=== PATIENT | female | born 1995 | race Caucasian/White ===

== ENCOUNTER → 2020-08-29 13:53 | Outpatient (CLI) | payer OTHER, SELFPAY ==
--- NOTE | 2020-08-29 15:02 | NEURO ---
NCS and/or EMG Patient Report DATE OF SERVICE: 08/29/20 Geovanna Phillips is a 25-year-old female presents for electrodiagnostic testing of the upper limbs. She reports numbness, tingling and pain in the hands, worse on the right side. Electrodiagnostic findings: Median motor nerve demonstrates normal distal latency, amplitude and conduction velocity on the right side. Left median motor nerve demonstrates normal distal latency and amplitude with borderline reduced conduction velocity. Normal ulnar motor response bilaterally. Prolonged left median sensory latency at the wrist. Normal ulnar and radial sensory responses. On needle EMG, all muscles tested in the upper limb showed no evidence of denervation with normal motor unit action potentials. Electrodiagnostic impression: This is an abnormal study in the upper limbs. 1. Electrodiagnostic findings suggestive of left-sided median mononeuropathy, consistent with a mild left carpal tunnel syndrome. There is no electrodiagnostic evidence for a right-sided carpal tunnel syndrome. If there are any further questions, please do not hesitate to contact me.
== END ==
DX: G56.00 Carpal tunnel syndrome, unspecified upper limb (principal); G56.23 Lesion of ulnar nerve, bilateral upper limbs
CPT/HCPCS: 95886; 95912

== ENCOUNTER → 2024-02-12 | Outpatient (CLI) | payer OTHER, SELFPAY ==
--- NOTE | 2024-02-12 12:45 | MRI_ITS ---
STUDY: MRI BRAIN WITHOUT CONTRAST REASON FOR EXAM: Female, 28 years old. PAPILLEDEMA TECHNIQUE: Standardized multiplanar fat and water weighted pulse sequences were obtained. COMPARISON: None. FINDINGS: Normal size of the ventricles and extra-axial spaces for the patient''s age. Normal white matter tracts of the supratentorial brain. There is no evidence for recent intracranial ischemia or other cause of cytotoxic edema on diffusion weighted imaging (DWI). Normal T2* images of the brain without demonstrated susceptibility artifact. There is no demonstrated hemosiderin stain. Normal bilateral basal ganglia. Normal thalami. There is no extra-axial fluid accumulation. Normal flow voids within the major intracranial circulation suggesting patency by spin echo criteria. There is empty sella. Normal infundibular stalk, hypothalamus, and optic chiasm. Normal tectal plate and pineal gland. Normal midbrain, trinh and medulla. Normal cerebellum. Normal basal cisterns. Normal bilateral temporal bones. Normal bilateral internal auditory canals. No demonstrated orbital abnormality, within the constraints of a routine brain study. Normal visualized paranasal sinuses. Normal calvarium and skull base. Normal visualized soft tissue structures. Normal visualized upper cervical spine. MRI/Brain without Contrast IMPRESSION: Empty sella. No acute intracranial abnormality. Electronically Signed: Hernan Bernstein MD at 15:30 EDT ,
== END | disposition home or self-care (01) ==
LOC: MRI 12:42
PROVIDERS: PCP Family Medicine; Referring Provider Ophthalmology; Visit Provider Ophthalmology
DX: H47.10 Unspecified papilledema (principal)
CPT/HCPCS: 70551

== ENCOUNTER 2024-09-13 13:30 | Outpatient (RCR) | payer OTHER, SELFPAY ==
--- NOTE | 2024-08-24 13:32 | HP.PTEVAL ---
Patient's Visit Information Visit Information Visit Information: YADIRA KNOX is a 29 year old F referred to Physical Therapy by Dr. Marely Pickett MD with a diagnosis of CERVICALALGIA ,ACUTE LOW BACK PAIN WITHOUT SCIATICA. Date of Evaluation: 08/23/24 Physical Therapist: Junaid Chaney, PT, Cert MDT, OCS Visit Plan Frequency: 2x /Week Duration: 4 Weeks Plan: PT INTERVENTIONS STEPHAN EX'S CERVICAL/LUMBAR ,POSTURAL EX'S ,DLS ,LE FLEXABILITY AND POSTURE AND BODY MECHANICS EDUCATION Subjective Subjective: This 29 y/o female presents to physical therapy cervical pain and lumbar pain. Patient cervical pain worse then back. Patient has cervical pain ~ 6 weeks ago with with cervical pain with radicular symptoms to shoulder. Patient seen chiropractor 1 visit had x-rays showed DDD per MD. Patient seen Family DR no medication. Patient and MRI 5 years ago. Pain located cervical occiput and occasional left shoulder. Patient aggravating factors flexion ,sitting . Alleviating factors heat. Denies WOODS/nausea occasional dizziness ,denies tinnitus.Patient pain can affects sleeping. Patient described as burning and sharp pain and and denies paresthesia/tingling. Patient lumbar pain since 14 years old. Patient pain pain in LS region no leg pain. Aggravating factors bending,lifting sitting. Alleviating factors walking and extended standing worse. Coughing/sneezing- .Bowel/bladder-. Patient had x-rays -. Patient condition affects QOL and function /job demands .Patient goals to decrease pain. SOCIAL: VOCATION: Self employed Pain Bilateral Neck: Pain Intensity (Out of 10): 5 Pain Intensity Range: 10 Comment: worse 8/10 Bilateral Back: Pain Intensity (Out of 10): 5 Pain Intensity Range: 10 Objective Objective: POSTURE: flat thoracic ,increase lordosis ,decreased lordosis cervical spine NEURO: denies paresthesia/tingling reflexes C5-6-7 2/3 ,L3-4,L4-5,L5-S1 2/3 GAIT: reciprocal pattern PALAPTION: tender [place] ,L5 BUE: WFL MMT: BUE grossly 4/5 BLE MMT: quads/hams 4/5 ,ankle 5/5 ,hip flexion 4/5 CERVICAL ROM: flexion WFL ,extension min loss ,rotation min loss ,lateral flexion min loss ,retraction min loss LUMBAR ROM: flexion WFL ,extension min loss ,side glides min loss Special Tests C/S Radiculapathy - Left Upper limb tension test: Negative C/S Radiculapathy - Right Upper limb tension test: Negative C/S Radiculapathy - Left [place]: Negative C/S Radiculapathy - Right [place]: Negative C/S Radiculapathy - Left Cervical distraction: Negative C/S Radiculapathy - Right Cervical distraction: Negative C/S Radiculapathy - Left Relief test: Negative C/S Radiculapathy - Right Relief test: Negative C/S Radiculapathy - Valsalva: Negative Sharp Alli: Negative Vertebral Artery Test: Negative Alar Ligament Test: Negative Cervical Sitting: Protrusion - Mechanical Response: No effect Cervical Sitting: Protrusion - Symptoms During Testing: Increases Cervical Sitting: Protrusion - Symptoms After Testing: No worse Cervical Sitting: Retraction - Mechanical Response: No effect Cervical Sitting: Retraction - Symptoms During Testing: Decreases Cervical Sitting: Retraction - Symptoms After Testing: Better Cervical Sitting: Retraction-Extension - Mechanical Response: No effect Cerv Sitting: Retraction-Extension - Symptoms During Testing: Decreases Cerv Sitting: Retraction-Extension - Symptoms After Testing: Better Cervical Sitting: Sidebend Right - Mechanical Response: No effect Cervical Sitting: Sidebend Right - Symptoms During Testing: No effect Cervical Sitting: Sidebend Right - Symptoms After Testing: No effect Cervical Sitting: Sidebend Left - Mechanical Response: No effect Cervical Sitting: Sidebend Left - Symptoms During Testing: No effect Cervical Sitting: Sidebend Left - Symptoms After Testing: No effect Cervical Sitting: Rotation Right - Mechanical Response: No effect Cervical Sitting: Rotation Right - Symptoms During Testing: No effect Cervical Sitting: Rotation Right - Symptoms After Testing: No effect Cervical Sitting: Rotation Left - Mechanical Response: No effect Cervical Sitting: Rotation Left - Symptoms During Testing: No effect Cervical Sitting: Rotation Left - Symptoms After Testing: No effect Cervical Sitting: Flexion - Mechanical Response: No effect Cervical Sitting: Flexion - Symptoms During Testing: Increases Cervical Sitting: Flexion - Symptoms After Testing: Worse L/S Slump test left side: Negative L/S Slump test right side: Negative L/S Left Straight Leg Raise: Negative L/S Right Straight Leg Raise: Negative Lumbar Standing: Flexion - Mechanical Response: No effect Lumbar Standing: Flexion - Symptoms During Testing: Increases Lumbar Standing: Flexion - Symptoms After Testing: No worse Lumbar Standing: Extension - Mechanical Response: No effect Lumbar Standing: Extension - Symptoms During Testing: Increases Lumbar Standing: Extension - Symptoms After Testing: No worse Lumbar Standing: Right Side Glides - Mechanical Response: No effect Lumbar Standing: Right Side [place] - Symptoms During Testing: No effect Lumbar Standing: Right Side [place] - Symptoms After Testing: No effect Lumbar Standing: Left Side [place] - Mechanical Response: No effect Lumbar Standing: Left Side [place] - Symptoms During Testing: No effect Lumbar Standing: Left Side [place] - Symptoms After Testing: No effect Lumbar Lying: Flexion - Mechanical Response: No effect Lumbar Lying: Flexion - Symptoms During Testing: No effect Lumbar Lying: Flexion - Symptoms After Testing: No effect Lumbar Lying: Extension - Mechanical Response: No effect Lumbar Lying: Extension - Symptoms After Testing: Better Balance/Special Test Scores Oswestry Neck Score: 20 Goals Goal 1:: Patient to be I with HEP for cervical and lumbar Goal Time Frame: 4-6 Weeks Goal 2:: Patient to demonstrate 70% improvement with less pain and improved function Goal Time Frame: 4-6 Weeks Goal 3:: Patient to improve neck oswestry score by 5 points to improve QOL Goal Time Frame: 4-6 Weeks Goal 4:: Patent to improve cervical ROM for function of recovery for driving and lumbar ROM to lift without pain Goal Time Frame: 4-6 Weeks Goal 5:: Patient Rehabilitation Potential Physical Therapy Diagnosis: Patient appears to have derangement cervical and lumbar symptoms worse with positioning and motion testing affects ADLS ,sitting job and housework tasks thus benefit from skilled PT Rehabilitation Potential: Good Anticipated Interventions Patient/Client Instruction: Educate patient on: Plan of Care For the Purpose of:: To decrease pain, To increase ROM, To improve nutrient delivery to tissue, To increase oxygenation perfusion, To improve muscle performance and motor function, To improve ability of physical actions for home/community/work/leisure, To improve health of tissue, To decrease soft tissue restriction, To increase flexibility/ROM, To reduce risk of recurrence, To prevent re-injury and To improve tolerance to ADL's Therapeutic Exercise to Include: Strength training, Body mechanics, Postural training, Flexibilty training, Dynamic Lumbar Stabilization and Stephan Exercises For the Purpose of:: To decrease pain, To increase ROM, To improve muscle performance and motor function, To increase tolerance to activity/condition/position, To improve ability of physical actions for home/community/work/leisure, To improve health of tissue, To decrease soft tissue restriction, To increase flexibility/ROM, To prevent re-injury and To improve tolerance to ADL's Manual Therapy Techniques to Include: Mobilization Comment: CERVICAL/NECK For the Purpose of:: To decrease pain, To increase ROM and To improve nutrient delivery to tissue Text: Thank you for the opportunity to evaluate your patient. For Medicare and Medicare HMO plans, please review the plan of care and approve it. It will need to be FAXED BACK to us at [phone] for Medicare purposes. For Medicare only, by signing this I certify the plan of care. Please let me know if there are questions or concerns regarding this plan of care. Physician Signature: Date:
== END 2024-09-22 14:35 | disposition home or self-care (01) ==
LOC: PT 13:30
PROVIDERS: Referring Provider Family Medicine; Visit Provider Family Medicine
DX: M54.2 Cervicalgia (principal)
CPT/HCPCS: 97110; 97162; 97530